=== PATIENT | female | born 1945 | race Caucasian/White ===

== ENCOUNTER 2017-02-22 17:02 | Emergency (ER) | payer MEDICARE | END 2017-02-22 18:09 | disposition home or self-care (01) | LOC: SCSER 17:02 | DX: R10.9 Unspecified abdominal pain (principal); E03.9 Hypothyroidism, unspecified; I10 Essential (primary) hypertension; J45.909 Unspecified asthma, uncomplicated; Z79.82 Long term (current) use of aspirin; Z79.899 Other long term (current) drug therapy ==

== ENCOUNTER 2017-11-26 13:31 | Emergency (ER) | payer MEDICARE ==
[~2017-11-26 13:31] MED LIST: ISOVUE-370 76%-LOCM 1 ML ONE
[2017-11-26 14:05] LABS: #Basophils 0.1 thou/uL (0.0-0.2); #Eosinphils 0.1 thou/uL (0.0-0.7); #Lymphocytes 1.7 thou/uL (1.20-3.40); #Monocytes 0.5 thou/uL (0.11-0.59); #Neutrophils 3.1 thou/uL (1.40-6.50); %Basophils 0.9 % (0.0-1.0); %Eosinophils 2.5 % (0.0-10.0); %Lymphocytes 30.9 % (21.0-51.0); %Monocytes 9.4 % (0.0-10.0); %Neutrophils 56.3 % (42.0-75.0); Mean Corpuscular Hemoglobin 32.6 pg (27.0-31.0); Mean Corpuscular Volume 96.1 fL (78.0-98.0); Mean Platelet Volume 6.1 fL (7.4-10.4); Platelet Count 535 thou/uL (130-400); Red Blood Cell (RBC) Count 3.68 mill/uL (4.20-5.40); White Blood Cell (WBC) Count 5.5 thou/uL (4.8-10.8)
[2017-11-26 14:12] LABS: INR-International Normal Ratio 1.1; PTT 29.2 SEC (22.9-36.1); Prothrombin Time 13.8 SEC (12.0-14.7)
[2017-11-26 14:13] LABS: D-Dimer Test 2.98 *mcg/mL (0.27-0.43)
[2017-11-26 14:24] LABS: ALT (SGPT) 14 U/L (8-55); AST (SGOT) 15 U/L (5-34); Alkaline Phosphatase 124 U/L (40-150); Anion Gap 13 mmol/L (10-20); BUN (Urea Nitrogen) 16 mg/dL (9.8-20.1); Bilirubin, Total 0.4 mg/dL (0.2-1.2); CK (CPK) 47 U/L (29-168); Calc. Creatinine Clearance 0 mL/min (70-130); Calcium 9.3 mg/dL (7.8-10.44); Carbon Dioxide 22 mmol/L (23-31); Chloride 106 mmol/L (98-107); Estimated GFR-MDRD 60; Glucose 100 mg/dL (83-110); Potassium 3.4 mmol/L (3.5-5.1); Sodium 138 mmol/L (136-145)
[2017-11-26 14:27] LABS: CKMB 0.6 ng/mL (0-6.6); Troponin I Less than 0.010 ng/mL (< 0.028)
--- NOTE | 2017-11-26 15:11 | RAD ---
PORTABLE AP CHEST XRAY; DATE: 11/26/17. HISTORY: Chest pain. COMPARISON: 01/05/16. FINDINGS: Cardiac silhouette and pulmonary vasculature are within normal limits. Lungs remain clear. There mckenzie s been no interval change when compared to the prior exam. IMPRESSION: No acute cardiopulmonary process. POS: [facility]
--- NOTE | 2017-11-26 15:17 | CT ---
CT ANGIOGRAM THORAX WITH IV CONTRAST AND 3D RECONSTRUCTIONS: 11/26/2017 HISTORY: Chest pain. Elevated D-dimer. Recent hip replacement surgery. COMPARISON: None available. FINDINGS: No filling defects are seen in the pulmonary arteries to suggest a pulmonary embolus. The thoracic aorta is not opacified but is normal in caliber. Vascular calcifications are seen in th e coronary arteries, as well as involving the thoracic aorta. There is minimal atelectasis versus ch ronic lung changes at the posterior aspect of the upper lung zones and in the superior segment of eac h lower lobe. There is no discrete pulmonary nodule, mass, or pleural effusion identified. Linear a telectasis versus scarring is seen at each lung base. No enlarged lymph nodes are seen by CT size criteria. Post cholecystectomy changes are noted. Calcified granuloma is seen in the liver. In addition, there is a small, subcentimeter, hypodense lesion at the anterior aspect, lateral segmen t, left hepatic lobe. Degenerative changes are noted in the spine. IMPRESSION: 1. No CT evidence of a pulmonary embolus. 2. Cholecystectomy. POS: [facility]
== END 2017-11-26 15:54 | disposition home or self-care (01) ==
LOC: ERS 13:31
DX: R07.9 Chest pain, unspecified (principal); E03.9 Hypothyroidism, unspecified; I10 Essential (primary) hypertension; J45.909 Unspecified asthma, uncomplicated; Z79.899 Other long term (current) drug therapy; Z79.82 Long term (current) use of aspirin
CPT/HCPCS: 36415; 71045; 71275; 80053; 82553; 83880; 84443; 84484; 85025; 85379; 85610; 85730; 93005; 94760

== ENCOUNTER 2018-01-04 10:36 | Emergency (ER) | payer MEDICARE ==
[2018-01-04] MEDS ORDERED: Diazepam 5 MG TAB ONE (10:58)
--- NOTE | 2018-01-04 12:20 | RAD ---
LUMBAR SPINE 3 VIEWS: INDICATION: Lumbar pain. FINDINGS: Comparison is made to an MRI of the lumbar spine from 2012. There is a compression deformity of the L4 vertebra which is stable in appearance when compared to 20 12. The other lumbar vertebrae maintain normal height and alignment. There is mild loss of disk spa ce at L4-5 and L5-S1. There is no evidence of spondylolisthesis. IMPRESSION: There is a compression deformity of L4 which appears stable. There are mild degenerative changes pre sent. POS: [facility]
== END 2018-01-04 11:55 | disposition home or self-care (01) ==
LOC: SCSER 10:36
DX: S39.012A Strain of muscle, fascia and tendon of lower back, initial encounter (principal); E03.9 Hypothyroidism, unspecified; I10 Essential (primary) hypertension; J45.909 Unspecified asthma, uncomplicated; Z79.899 Other long term (current) drug therapy; X50.1XXA Overexertion from prolonged static or awkward postures, initial encounter
CPT/HCPCS: 72100

== ENCOUNTER 2019-01-28 21:26 | Emergency (ER) | payer MEDICARE ==
[2019-01-28] MEDS ORDERED: HYDROcodone/Acetaminophen 5/325 mg Tablet ONE (21:42)
--- NOTE | 2019-01-28 21:56 | RAD ---
Left Little finger 3 views HISTORY: Finger pain. No trauma. FINDINGS: Joint space loss, osteophytosis, and subchondral sclerosis of the interphalangeal joints wi th articular surface erosions at the distal interphalangeal joint. Subtle oblique linear lucency projecting over the proximal aspect of the middle phalanx on 2 of the views is favored to represent a vascular groove in the absence of recent trauma and overlying soft tissue swelling. No radiopaque foreign bodies are apparent. IMPRESSION: Prominent erosive osteoarthritis left Little finger.
== END 2019-01-28 22:00 | disposition home or self-care (01) ==
LOC: SCSER 21:26
DX: M79.645 Pain in left finger(s) (principal); E03.9 Hypothyroidism, unspecified; I10 Essential (primary) hypertension; J45.909 Unspecified asthma, uncomplicated; I20.9 Angina pectoris, unspecified

== ENCOUNTER 2022-12-28 11:16 | Outpatient (CLI) | payer MEDICARE | END 2022-12-28 11:17 | disposition home or self-care (01) | LOC: RAD 11:16 | PROVIDERS: ATTEND Internal Medicine | DX: R05.3 Chronic cough (principal) | CPT/HCPCS: 71046 ==